=== PATIENT | female | born 1940 | race Caucasian/White ===

== ENCOUNTER 2022-12-18 07:30 | Inpatient (IN) | payer BC, OTHER ==
[2022-12-11 15:55] LABS: MEAN PLATELET VOLUME 7.2 FL (7.4-10.4)
[2022-12-11 15:56] LABS: BILIRUBIN,URINE NEGATIVE (Neg); CLARITY,URINE CLEAR (Clear); COLOR,URINE YELLOW (Yellow); GLUCOSE, URINE NEGATIVE (Neg); KETONES,URINE NEGATIVE (Neg); LEUKOCYTE ESTERASE ,URINE NEGATIVE (Neg); NITRITES, URINE NEGATIVE (Neg); OCCULT BLOOD,URINE TRACE-INTACT (Neg); PH,URINE 5.5 (4.8-8.0); PROTEIN,URINE >=300 mg/dl (Neg); UROBILINOGEN,URINE 0.2 E.U/dL (0.2-1.0)
[2022-12-11 15:57] LABS: BASOPHILS % (AUTO) 0.7 % (0-1); EOSINOPHILS # (AUTO) 0.1 X10'3 (0-0.9); EOSINOPHILS % (AUTO) 1.8 % (0-6); LYMPHOCYTES # (AUTO) 1.6 X10'3 (1.1-4.8); LYMPHOCYTES % (AUTO) 23.5 % (21-51); MEAN CORPUSCULAR HEMOGLOBIN 30.4 PG (27.0-31.0); MEAN CORPUSCULAR HGB CONC 34.1 g/dL (33.0-36.5); MONOCYTES # (AUTO) 0.5 X10'3 (0-0.9); MONOCYTES % (AUTO) 6.9 % (2-12); NEUTROPHILS # (AUTO) 4.6 X10'3 (1.8-7.7); NEUTROPHILS % (AUTO) 67.1 % (42-75); PRE OP HEMATOCRIT 39.3 % (35.0-45.0); PRE OP HEMOGLOBIN 13.4 g/dL (12.0-16.0); PRE OP PLATELET COUNT 134 X10'3 (140-440); PRE OP WHITE BLOOD COUNT 6.9 10'3 (4.8-10.8); RED BLOOD COUNT 4.41 X10'6 (4.20-5.60); RED CELL DISTRIBUTION WIDTH 13.7 % (11.5-14.5)
[2022-12-11 16:12] LABS: ALBUMIN 3.4 G/DL (3.4-5.0); ALKALINE PHOSPHATASE 70 IU/L (46-116); BLOOD UREA NITROGEN 33 MG/DL (7-18); BUN/CREATININE RATIO 31.7 (10.0-20.0); CALCIUM 9.2 MG/DL (8.5-10.1); CHLORIDE 107 MMOL/L (99-107); CREATININE 1.04 MG/DL (0.40-0.90); PRE OP ALT 32 U/L (30-65); PRE OP ANION GAP 11 (8-16); PRE OP AST 23 U/L (10-37); PRE OP BILIRUB, TOTAL 0.4 MG/DL (0.0-1.0); PRE OP GLUCOSE 102 MG/DL (70-104); PRE OP POTASSIUM 4.2 MMOL/L (3.4-5.1); PRE OP SODIUM 143 MMOL/L (135-145); TOTAL CARBON DIOXIDE 25.5 MMOL/L (24-32); TOTAL PROTEIN 6.8 G/DL (6.4-8.2); eGFR 50 ML/MIN
[2022-12-11 16:17] LABS: UA COLLECTION TYPE CLN CATCH MIDSTREAM
[2022-12-11 16:25] LABS: BACTERIA,URINE NONE SEEN /HPF (Neg); RBC,URINE 0-2 /HPF (0-2); SQUAMOUS EPITHELIAL CELL,UR NONE SEEN /LPF (FEW); WBC,URINE 0-4 /HPF (0-4)
[2022-12-18] VITALS (24 sets, daily range): BP systolic 102–155; BP diastolic 48–96; PULSE 44–72; RESP 14–26; TEMP 96.7–98.4; O2SAT 95–100
[~2022-12-18] VITALS: Ht 167.6 cm; Wt 82.4 kg
[~2022-12-18 07:30] MED LIST: AMLO5TAB PO; LOSA100T58 PO; SIMV-341 PO; ceFOXitin 2GM-NS 100mL ADDvant 100 ML IV ONE; famotidine 20mg tablet PO ONE; ringers solution, lacted 1,000 ML IV SCH
[2022-12-18] MEDS ORDERED: midazolam 1 mg/ML 2ml injection IV PRN (09:45)
[2022-12-18] MEDS ORDERED: naloxone 0.4 mg/ml inj IV PRN ×2 (10:30→10:45)
[2022-12-18] MEDS ORDERED: HYDROcodone/acetaminophen 5mg/325mg tablet PO PRN (10:45)
[2022-12-18] MEDS ORDERED: HYDROcodone/acetaminophen 10/325mg tab PO PRN (10:45)
[2022-12-18] MEDS ORDERED: PCA WASTE DOCUMENTATION 1 MG ML MC PRN ×2 (10:45→12:30)
[2022-12-18] MEDS ORDERED: BUPIVAcaine/PF 2.5 mg/ml (0.25%) 30ml vial ONE (11:25)
[2022-12-18] MEDS ORDERED: iohexol 300 MG/1 ML 50ml polymer ONE (11:34)
[2022-12-18] MEDS ORDERED: midazolam 1 mg/ML 2ml injection ONE (12:00)
[2022-12-18] MEDS ORDERED: rocuronium 10mg/ml inj IV ONE ×2 (12:00→12:16)
[2022-12-18] MEDS ORDERED: propofol inj 20 ML IV ONE (12:00)
[2022-12-18] MEDS ORDERED: fentaNYL /PF 50mcg/ml 5ml ampule ONE (12:00)
[2022-12-18] MEDS ORDERED: neostigmine methylsulfate 1 MG/ML 10ml vial ONE (12:16)
[2022-12-18] MEDS ORDERED: sevoflurane 250ml liquid IH ONE (12:16)
[2022-12-18] MEDS ORDERED: glycopyrrolate 0.2mg/ml inj ONE (12:16)
[2022-12-18] MEDS ORDERED: BUPIVAcaine/PF 2.5 mg/ml (0.25%) 30ml vial IJ ONE (12:37)
[2022-12-18] MEDS ORDERED: morphine 2 MG/ML inj. syringe IV PRN (14:00)
[2022-12-18] MEDS ORDERED: morphine 4 MG/ML inj SYRINge IV PRN (14:00)
[2022-12-18] MEDS ORDERED: ringers solution, lacted 1,000 ML IV SCH (14:00)
[2022-12-18] MEDS ORDERED: meperidine/PF 25mg/ml syringe IV PRN ×3 (14:00)
[2022-12-18] MEDS ORDERED: ondansetron/PF 4mg/2ml inj IV PRN (14:00)
[2022-12-18] MEDS ORDERED: proCHLORperazine 10 MG/2 ml inj IV PRN (14:00)
[2022-12-18] MEDS: HYDROmorph/NS 0.2 mg/ml PCA 100 ML IV SCH ×6 (15:00→23:00)
[2022-12-18] MEDS ORDERED: acetaminophen 1,000mg/100ml IV 100 ML IV ONE (15:05)
[2022-12-18] MEDS ORDERED: dexamethasone sod phosphate 4mg/ml inj. ONE (15:05)
[2022-12-18] MEDS ORDERED: ondansetron/PF 4mg/2ml inj ONE (15:05)
--- NOTE | 2022-12-18 15:33 | NUR ---
Received from OR via hospital bed to RR 6, accompanied by Anesthesiologist Angeline and report given by Anesthesiolgist. Pt on via mask with spo2 100%. 2 lap sites with bandaids and 1 small island dressing, CDI. LR running at 100ml/hr. F/C draining to gravity. SCD's on. Will continue to monitor.
[2022-12-18] MEDS: ondansetron/PF 4mg/2ml inj IV PRN (15:43)
[2022-12-18] MEDS ORDERED: ceFOXitin inj 1,000 MG in normal saline 100ml IV soln 100 ML IV SCH (16:00)
[2022-12-18] MEDS ORDERED: glycopyrrolate 0.2mg/ml inj IV ONE ×2 (16:10→16:40)
--- NOTE | 2022-12-18 16:13 | NUR ---
PATIENT HR IN 40'S: AWARE AND GAVE ORDER TO ADMINISTER ROBINUL 0.2MG IV ONCE, OK TO GIVE SECOND DOSE 10 MIN LATER IF NEEDED.
--- NOTE | 2022-12-18 16:51 | NUR ---
Patient in room PAS IN 901. I have received report from charan ríos and had the opportunity to ask questions and assume patient care.
--- NOTE | 2022-12-18 17:13 | NUR ---
PATIENT STABLE FOR TRANSFER TO FLOOR, ROOM 4013A. REPORT GIVEN TO RN AT BEDSIDE. O2 GOING ON 3L NC, POST OP VS STARTED, VSS. 2 ABD LAP SITES CDI WITH BANDAIDS & 1 ISLAND DRESSING WITH SCANT BLOOD, OUTLINED IN ROOM WITH PRIMARY RN. F/C DRAINING TO GRAVITY. DILAUDID BUTTON & CALL LIGHT IN HAND. 2 RAILS UP, BLL.
--- NOTE | 2022-12-18 17:20 | NUR ---
ORDER FROM DR KEENE TO PUT PT ON TELE D/T LOW HR IN RECOVERY. CALLED PRIMARY RN AND ADVISED OF NEW ORDER REC'D.
--- NOTE | 2022-12-18 18:50 | NUR ---
Problems reprioritized. Patient report given, questions answered & plan of care reviewed with willi ríos.
--- NOTE | 2022-12-18 19:14 | NUR ---
Patient in room ORTHO 4013. I have received report from Lesia LOCKWOOD and had the opportunity to ask questions and assume patient care.
[2022-12-18] MEDS: ceFOXitin inj 1,000 MG in normal saline 100ml IV soln 100 ML IV SCH (20:38)
[2022-12-18] MEDS: docusate sod 100mg capsule PO SCH (20:41)
[2022-12-19] VITALS (7 sets, daily range): BP systolic 113–148; BP diastolic 48–68; PULSE 60–78; RESP 14–18; TEMP 97.4–98.8; O2SAT 91–100
[2022-12-19] MEDS: HYDROmorph/NS 0.2 mg/ml PCA 100 ML IV SCH ×12 (01:00→23:00)
[2022-12-19] MEDS: ceFOXitin inj 1,000 MG in normal saline 100ml IV soln 100 ML IV SCH (03:45)
--- NOTE | 2022-12-19 05:54 | NUR ---
Poor urine output 225. overnight. Had 200mls s/p colon resection.Patient encouraged to drink fluids. Bladder scanned zero urine observed in bladder. will continue to monitor following encouragement to drink Po fluids
--- NOTE | 2022-12-19 06:28 | NUR ---
Problems reprioritized. Patient report given, questions answered & plan of care reviewed with artemio LOCKWOOD.
--- NOTE | 2022-12-19 06:32 | NUR ---
Patient in room ORTHO 4013. I have received report from FABIÁN Smart and had the opportunity to ask questions and assume patient care.
[2022-12-19 06:43] LABS: BASOPHILS % (AUTO) 0.2 % (0-1); EOSINOPHILS % (AUTO) 0 % (0-6); HEMOGLOBIN 13.1 g/dl (12.0-16.0); LYMPHOCYTES # (AUTO) 0.7 X10'3 (1.1-4.8); LYMPHOCYTES % (AUTO) 4.5 % (21-51); MEAN CORPUSCULAR HEMOGLOBIN 30.4 PG (27.0-31.0); MEAN CORPUSCULAR HGB CONC 32.8 g/dL (33.0-36.5); MEAN CORPUSCULAR VOLUME 92.8 FL (78-98); MEAN PLATELET VOLUME 7.5 FL (7.4-10.4); MONOCYTES # (AUTO) 0.9 X10'3 (0-0.9); MONOCYTES % (AUTO) 5.4 % (2-12); NEUTROPHILS # (AUTO) 14.9 X10'3 (1.8-7.7); NEUTROPHILS % (AUTO) 89.9 % (42-75); PLATELET COUNT 122 X10'3 (140-440); RED BLOOD COUNT 4.31 X10'6 (4.20-5.60); RED CELL DISTRIBUTION WIDTH 14.2 % (11.5-14.5); WHITE BLOOD COUNT 16.6 X10'3 (4.5-11.0)
[2022-12-19 07:00] LABS: ALBUMIN 2.8 G/DL (3.4-5.0); ANION GAP 13 (8-16); BLOOD UREA NITROGEN 25 MG/DL (7-18); BUN/CREATININE RATIO 12.2 (10.0-20.0); CALCIUM 8.5 MG/DL (8.5-10.1); CHLORIDE 104 MMOL/L (99-107); CREATININE 2.05 MG/DL (0.40-0.90); GLUCOSE 182 MG/DL (70-104); POTASSIUM 4.4 MMOL/L (3.5-5.1); SODIUM 137 MMOL/L (135-145); TOTAL CARBON DIOXIDE 20.5 MMOL/L (24-32); eCRCL 19 ML/MIN; eGFR 23 ML/MIN
[2022-12-19] MEDS: docusate sod 100mg capsule PO SCH ×2 (08:10→19:53)
--- NOTE | 2022-12-19 11:13 | NUR ---
Dr. Muir notified patient has had 100ml of urine output at this time. Vitals 98, 60, 18, 91%RA, 148/61. Order to bolus 500ml NS and to keep plata in.
[2022-12-19] MEDS ORDERED: normal saline 500ml IV soln 500 ML IV ONE ×2 (11:15→17:02)
[2022-12-19] MEDS: ondansetron/PF 4mg/2ml inj IV PRN (13:28)
--- NOTE | 2022-12-19 14:38 | NUR ---
patient reports feeling lower abdomen bladder discomfort "a lot of pressure." Checked plata catheter no kinks and plata bag drainage bag with urine. Plata catheter secured to thigh and lower than bladder. Bladder scan show 0ml. Patient has not passed gas and encouraged patient to drink fluids and ambulate as may be due to gas pains s/p surgery as pain and discomfort is near incision site. Patient up and ambulating with daughter. Patient stated passed some gas and feeling better. Will continue to monitor.
--- NOTE | 2022-12-19 18:00 | NUR ---
Patient in room ORTHO 4013. I have received report from FABIÁN Solorio and had the opportunity to ask questions and assume patient care.
[2022-12-19] MEDS: ringers solution, lacted 1,000 ML IV SCH ×2 (18:04→23:12)
--- NOTE | 2022-12-19 18:14 | NUR ---
Problems reprioritized. Patient report given, questions answered & plan of care reviewed with FABIÁN Dean.
[2022-12-19] MEDS ORDERED: enoxaparin 40mg/0.4ml syringe SUBCUT SCH (20:00)
[2022-12-20] MEDS: HYDROmorph/NS 0.2 mg/ml PCA 100 ML IV SCH ×12 (01:00→23:00)
[2022-12-20 06:00] VITALS: BP 138/62; PULSE 68; RESP 16; TEMP 98.4; O2SAT 93
--- NOTE | 2022-12-20 06:15 | NUR ---
Patient in room ORTHO 4013. I have received report from Arin LOCKWOOD and had the opportunity to ask questions and assume patient care.
--- NOTE | 2022-12-20 06:19 | NUR ---
Problems reprioritized. Patient report given, questions answered & plan of care reviewed with CHANI Dhaliwal.
[2022-12-20 07:07] LABS: BASOPHILS % (AUTO) 0.2 % (0-1); EOSINOPHILS % (AUTO) 0.3 % (0-6); HEMATOCRIT 28.9 % (35.0-45.0); HEMOGLOBIN 9.9 g/dl (12.0-16.0); LYMPHOCYTES # (AUTO) 1.2 X10'3 (1.1-4.8); LYMPHOCYTES % (AUTO) 11.7 % (21-51); MEAN CORPUSCULAR HEMOGLOBIN 30.8 PG (27.0-31.0); MEAN CORPUSCULAR HGB CONC 34.4 g/dL (33.0-36.5); MEAN CORPUSCULAR VOLUME 89.3 FL (78-98); MEAN PLATELET VOLUME 6.8 FL (7.4-10.4); MONOCYTES # (AUTO) 0.6 X10'3 (0-0.9); MONOCYTES % (AUTO) 5.5 % (2-12); NEUTROPHILS # (AUTO) 8.8 X10'3 (1.8-7.7); NEUTROPHILS % (AUTO) 82.3 % (42-75); PLATELET COUNT 94 X10'3 (140-440); RED BLOOD COUNT 3.23 X10'6 (4.20-5.60); RED CELL DISTRIBUTION WIDTH 13.6 % (11.5-14.5); WHITE BLOOD COUNT 10.6 X10'3 (4.5-11.0)
[2022-12-20 08:00] VITALS: RESP 16; O2SAT 93
[2022-12-20] MEDS: docusate sod 100mg capsule PO SCH ×2 (08:00→20:12)
[2022-12-20 08:16] LABS: ALANINE AMINOTRANSFERASE 26 U/L (12-78); ALBUMIN 2.2 G/DL (3.4-5.0); ALBUMIN/GLOBULIN RATIO 0.8 (1.1-1.5); ALKALINE PHOSPHATASE 50 IU/L (46-116); ANION GAP 7 (8-16); ASPARTATE AMINO TRANSFERASE 26 U/L (10-37); BILIRUBIN,TOTAL 0.5 MG/DL (0.1-1.0); BLOOD UREA NITROGEN 28 MG/DL (7-18); BUN/CREATININE RATIO 14.1 (10.0-20.0); CHLORIDE 102 MMOL/L (99-107); CREATININE 1.98 MG/DL (0.40-0.90); GLUCOSE 107 MG/DL (70-104); POTASSIUM 3.8 MMOL/L (3.5-5.1); SODIUM 134 MMOL/L (135-145); TOTAL CARBON DIOXIDE 25.4 MMOL/L (24-32); eCRCL 20 ML/MIN; eGFR 24 ML/MIN
[2022-12-20] MEDS: ringers solution, lacted 1,000 ML IV SCH ×2 (08:58→23:05)
[2022-12-20 10:00] VITALS: BP 142/64; PULSE 74; RESP 25; TEMP 98.9; O2SAT 94
--- NOTE | 2022-12-20 14:44 | NUR ---
TRUCK REPAIR SUPERVISOR documentation: I have reviewed and agree with all interventions, assessments performed and documented by Madhuri Peterson LVN.
[2022-12-20] MEDS ORDERED: enoxaparin 30mg/0.3ml syringe SUBCUT SCH (16:34)
[2022-12-20] MEDS: ondansetron/PF 4mg/2ml inj IV PRN (17:50)
[2022-12-20 18:00] VITALS: BP 133/64; PULSE 93; RESP 20; TEMP 98.7; O2SAT 95
--- NOTE | 2022-12-20 18:17 | NUR ---
Problems reprioritized. Patient report given, questions answered & plan of care reviewed with Gala RN.
--- NOTE | 2022-12-20 18:45 | NUR ---
RN removed patients plata catheter at 1845, no complications. 800ml clear yellow urine in bag when removed. educated patient to use call light when she has the urge to void
[2022-12-20 22:00] VITALS: BP 138/37; PULSE 78; RESP 16; TEMP 97.4; O2SAT 92
[2022-12-21] MEDS: HYDROmorph/NS 0.2 mg/ml PCA 100 ML IV SCH ×5 (01:00→09:00)
[2022-12-21 06:00] VITALS: BP 117/50; PULSE 80; RESP 16; TEMP 97.5; O2SAT 93
--- NOTE | 2022-12-21 06:25 | NUR ---
Patient in room ORTHO 4013. I have received report from Gala LOCKWOOD and had the opportunity to ask questions and assume patient care.
--- NOTE | 2022-12-21 06:27 | NUR ---
Problems reprioritized. Patient report given, questions answered & plan of care reviewed with Madhuri moses.
[2022-12-21 06:49] LABS: BASOPHILS % (AUTO) 0.1 % (0-1); EOSINOPHILS # (AUTO) 0.1 X10'3 (0-0.9); EOSINOPHILS % (AUTO) 0.6 % (0-6); HEMOGLOBIN 9.6 g/dl (12.0-16.0); LYMPHOCYTES # (AUTO) 0.5 X10'3 (1.1-4.8); LYMPHOCYTES % (AUTO) 6.4 % (21-51); MEAN CORPUSCULAR HEMOGLOBIN 30.8 PG (27.0-31.0); MEAN CORPUSCULAR HGB CONC 34.3 g/dL (33.0-36.5); MEAN CORPUSCULAR VOLUME 89.7 FL (78-98); MEAN PLATELET VOLUME 7.3 FL (7.4-10.4); MONOCYTES # (AUTO) 0.6 X10'3 (0-0.9); MONOCYTES % (AUTO) 7.3 % (2-12); NEUTROPHILS # (AUTO) 7.1 X10'3 (1.8-7.7); NEUTROPHILS % (AUTO) 85.6 % (42-75); PLATELET COUNT 91 X10'3 (140-440); RED BLOOD COUNT 3.12 X10'6 (4.20-5.60); RED CELL DISTRIBUTION WIDTH 13.4 % (11.5-14.5); WHITE BLOOD COUNT 8.3 X10'3 (4.5-11.0)
[2022-12-21 06:54] LABS: ANION GAP 7 (8-16); BLOOD UREA NITROGEN 26 MG/DL (7-18); BUN/CREATININE RATIO 13.1 (10.0-20.0); CALCIUM 8.5 MG/DL (8.5-10.1); CHLORIDE 106 MMOL/L (99-107); CREATININE 1.98 MG/DL (0.40-0.90); GLUCOSE 120 MG/DL (70-104); POTASSIUM 3.9 MMOL/L (3.5-5.1); SODIUM 138 MMOL/L (135-145); eCRCL 20 ML/MIN; eGFR 24 ML/MIN
[2022-12-21 07:00] VITALS: RESP 16; O2SAT 93
[2022-12-21] MEDS: docusate sod 100mg capsule PO SCH (08:00)
--- NOTE | 2022-12-21 08:41 | NUR ---
Patient refused stool softeners due to her diarrhea.
[2022-12-21 10:00] VITALS: BP 140/61; PULSE 75; RESP 18; TEMP 97; O2SAT 95
--- NOTE | 2022-12-21 11:30 | NUR ---
CUSTOMER ENGAGEMENT ANALYST documentation: I have reviewed and agree with all interventions, assessments performed and documented by Madhuri Peterson LVN.
--- NOTE | 2022-12-21 11:30 | NUR ---
Patient discharged home today. IV and CADD pump removed by RN. Patient was helped dressed by daughter and all belongings were gathered. Discharge instructions were explained and all questions were answered. Abdominal band aids were removed and jules were intact. Some drainage and bleeding, new band aids were placed and advised patient to remove tomorrow. Patient was alert and appropriate. Patient was wheeled downstairs and into private vehicle.
== END 2022-12-21 12:05 | disposition home or self-care (01) | DRG 329 ==
LOC: PAS IN 08:49 → ORTHO 4S 17:15
PROVIDERS: ADMIT Surgery; ATTEND Surgery
PROC: 0T9880Z Drainage of Bilateral Ureters with Drainage Device, Via Natural or Artificial Opening Endoscopic (ICD-10-PCS; principal; 2022-12-18 12:16)
PROC: 0T9B80Z Drainage of Bladder with Drainage Device, Via Natural or Artificial Opening Endoscopic (ICD-10-PCS; 2022-12-18 12:16)
PROC: 0DTN0ZZ Resection of Sigmoid Colon, Open Approach (ICD-10-PCS; 2022-12-19)
DX: C18.7 Malignant neoplasm of sigmoid colon (principal); N17.0 Acute kidney failure with tubular necrosis; D62 Acute posthemorrhagic anemia; E78.5 Hyperlipidemia, unspecified; E86.0 Dehydration; I10 Essential (primary) hypertension; Z87.891 Personal history of nicotine dependence; Z90.710 Acquired absence of both cervix and uterus; Z79.899 Other long term (current) drug therapy; Z90.49 Acquired absence of other specified parts of digestive tract
CPT/HCPCS: 36415; 80048; 80053; 81001; 82948; 85025; 86885; 86900; 86901; 86920; 87081; A4215; A4615; A4618; A6258; A7000; C1758; C1769; G0378; J0131; J0694; J0780; J1100; J1170; J1650; J2250; J2405; J2704; J2710; J3010; J3490; J7040; J7120; Q9967